=== PATIENT | male | born 1990 | race Caucasian/White ===

== ENCOUNTER 2021-01-30 15:18 | Emergency (ER) | payer OTHER ==
[2021-01-30 16:20] LABS: HEMOGLOBIN 16.3 gm/dl (14.0-17.5); RED BLOOD COUNT 5.14 M/UL (4.20-5.50); WHITE BLOOD COUNT 8.5 K/UL (4.5-11.0)
[2021-01-30 17:09] LABS: BUN/CREATININE RATIO 10 (0-10)
== END 2021-01-31 01:45 | disposition home or self-care (01) ==
LOC: ER1 15:18
PROVIDERS: Preventive Medicine Occupational Medicine
DX: F10.129 Alcohol abuse with intoxication, unspecified (principal); Y90.5 Blood alcohol level of 100-119 mg/100 ml
CPT/HCPCS: 71045; 80053; 80307; 82009; 85025; 85610; 93005; 96374; 96375; 99284; G0480; J2405; J3411; J3475; J7030